=== PATIENT | female | born 1940 | race Caucasian/White ===

== ENCOUNTER 2019-09-08 09:45 | Inpatient (IN) ==
[2019-09-08] MEDS ORDERED: DILTIAZEM 50 MG/10 ML VIAL IV STA (10:09)
[2019-09-08 10:23] LABS: Basophils # 0.1 10*3/uL (0.0-0.2); Basophils % 0.7 % (0.0-0.8); Eosinophils # 0.2 10*3/uL (0.0-0.87); Eosinophils % 2.3 % (0.00-10.9); Hematocrit 38.3 VOL% (35.7-47.0); Hemoglobin 12.8 GM/DL (12.0-16.0); Immature Granulocytes % 0.1 %; Immature Granulocytes Absolute 0.01 #; Lymphocytes # 1.3 10*3/uL (1.4-4.0); Lymphocytes % 17.4 % (21.3-54.2); Mean Corpuscular HGB Conc 33.4 GM/DL (32-36); Mean Corpuscular Volume 92.5 FL (87-102); Neutrophils % 70.5 % (38.7-73.9); Platelet Count 199 T/CUMM (130-400); Red Blood Count 4.14 MC/CUMM (3.8-5.5); Red Cell Distribution Width 13.7 % (9.3-17.3); White Blood Count 7.5 T/CUMM (4-12)
[2019-09-08 10:35] LABS: PT Patient Result 10.7 SECS (9.6-12.2); Partial Thromboplastin Time 26.8 SECS (20.8-36.0)
[2019-09-08 10:58] LABS: Alanine Aminotransferase 45 U/L (13-56); Albumin 3.8 G/DL (3.4-5.0); Alkaline Phosphatase 101 U/L (45-117); Aspartate Amino Transferase 45 U/L (0-37); Blood Urea Nitrogen 15 MG/DL (7-18); Calcium 9.2 MG/DL (8.5-10.1); Estimated Glom Filtration Rate 35 ML/MIN; Free T4 (Free Thyroxine) 1.44 NG/DL (0.76-1.46); Glucose 99 MG/DL (74-106); Osmolality,Calculated 279.4 MOS/KG (273-304); Total Protein 7.4 G/DL (6.4-8.3)
[2019-09-08 10:59] LABS: Troponin I 0.122 NG/ML (0.00-0.045)
[2019-09-08] MEDS ORDERED: ACETAMINOPHEN 500 MG TABLET PO PRN (11:22)
[2019-09-08] MEDS ORDERED: ONDANSETRON 4 MG/2 ML VIAL IV PRN (11:22)
[2019-09-08] MEDS ORDERED: ZALEPLON 5 MG CAPSULE PO PRN (13:14)
[2019-09-08] MEDS: PANTOPRAZOLE 40 MG TABLET PO SCH (14:39)
[2019-09-08] MEDS: ASPIRIN EC 81 MG TABLET PO SCH (16:24)
[2019-09-08] MEDS ORDERED: dilTIAZem Drip 125 MG/125 ML PREMIX IV SCH (16:30)
[2019-09-08] MEDS: APIXABAN 5 MG TABLET PO SCH (20:49)
[2019-09-08 22:16] LABS: Barbiturates Screen,Urine Negative (Negative); Benzodiazepines Screen,Urine Negative (Negative); Cannabinoid Screen,Urine Negative (Negative); Opiate Screen,Urine Positive (Negative); Phencyclidine Screen,Urine Negative (Negative)
[2019-09-08 22:20] LABS: Apearance,Urine CLEAR (Clear); Bilirubin,Urine Negative (Negative); Blood, Urine Negative (Negative); Glucose,Urine (UA) Negative (Negative); Hyaline Casts,Urine 4 /LPF (0-3); Ketones,Urine Negative (Negative); Mucus,Urine Occasional /LPF (Occasional); Nitrite,Urine Negative (Negative); Protein,Urine Negative; RBC,Urine 3 /HPF (0-4); Squamous Epithelial Cell,Urine Occasional /HPF (0-10); Urine Color Yellow (Yellow); Urine Specific Gravity 1.015 (1.001-1.035); Urine Urobilinogen < 2.0 EU/DL (0.2-1.0); WBC,Urine 5 /HPF (0-6)
[2019-09-09 05:30] LABS: Basophils # 0.1 10*3/uL (0.0-0.2); Basophils % 1.1 % (0.0-0.8); Eosinophils # 0.2 10*3/uL (0.0-0.87); Eosinophils % 3.1 % (0.00-10.9); Hematocrit 36.7 VOL% (35.7-47.0); Immature Granulocytes % 0.3 %; Immature Granulocytes Absolute 0.02 #; Lymphocytes # 1.8 10*3/uL (1.4-4.0); Lymphocytes % 27.7 % (21.3-54.2); Mean Corpuscular HGB Conc 32.7 GM/DL (32-36); Mean Corpuscular Volume 93.6 FL (87-102); Monocytes % 8.9 % (1.7-12.7); Neutrophils % 58.9 % (38.7-73.9); Platelet Count 176 T/CUMM (130-400); Red Blood Count 3.92 MC/CUMM (3.8-5.5); Red Cell Distribution Width 13.8 % (9.3-17.3); White Blood Count 6.5 T/CUMM (4-12)
[2019-09-09 05:55] LABS: Calcium 8.9 MG/DL (8.5-10.1); Osmolality,Calculated 292.6 MOS/KG (273-304)
[2019-09-09] MEDS: LEVOTHYROXINE 100 MCG TABLET PO SCH (06:19)
[2019-09-09] MEDS: MONTELUKAST 10 MG TABLET PO SCH (08:45)
[2019-09-09] MEDS: METOPROLOL SUCCINATE XL 50 MG TABLET PO SCH (08:45)
[2019-09-09] MEDS: ASPIRIN EC 81 MG TABLET PO SCH (08:45)
[2019-09-09] MEDS: PANTOPRAZOLE 40 MG TABLET PO SCH (08:45)
[2019-09-09] MEDS: APIXABAN 5 MG TABLET PO SCH ×2 (08:45→22:01)
[2019-09-09] MEDS: CALCIUM CARBONATE CHEW 500 MG TABLET PO SCH (08:46)
[2019-09-09] MEDS ORDERED: CALCIUM CARBONATE CHEW 500 MG TABLET PO SCH (09:00)
[2019-09-09] MEDS ORDERED: DIGOXIN 0.25 MG TABLET PO ONE (12:45)
[2019-09-09] MEDS ORDERED: DIGOXIN 0.125 MG TABLET PO SCH (13:00)
[2019-09-09] MEDS: WARFARIN 5 MG TABLET PO SCH (17:24)
[2019-09-10 04:01] LABS: Basophils # 0.1 10*3/uL (0.0-0.2); Basophils % 0.8 % (0.0-0.8); Eosinophils # 0.4 10*3/uL (0.0-0.87); Eosinophils % 4.3 % (0.00-10.9); Hemoglobin 12.6 GM/DL (12.0-16.0); Immature Granulocytes % 0.2 %; Immature Granulocytes Absolute 0.02 #; Lymphocytes # 1.9 10*3/uL (1.4-4.0); Lymphocytes % 23.1 % (21.3-54.2); Mean Corpuscular HGB Conc 33.2 GM/DL (32-36); Mean Corpuscular Volume 93.8 FL (87-102); Mean Platelet Volume 11.2 FL (9.6-12.0); Monocytes % 8.1 % (1.7-12.7); Neutrophils % 63.5 % (38.7-73.9); Platelet Count 170 T/CUMM (130-400); Red Blood Count 4.05 MC/CUMM (3.8-5.5); Red Cell Distribution Width 13.7 % (9.3-17.3); White Blood Count 8.4 T/CUMM (4-12)
[2019-09-10 04:08] LABS: INR 1.1; PT Patient Result 11.6 SECS (9.6-12.2)
[2019-09-10 04:15] LABS: Osmolality,Calculated 283.3 MOS/KG (273-304)
[2019-09-10] MEDS: LEVOTHYROXINE 100 MCG TABLET PO SCH (06:49)
[2019-09-10] MEDS: METOPROLOL SUCCINATE XL 50 MG TABLET PO SCH (08:37)
[2019-09-10] MEDS: PANTOPRAZOLE 40 MG TABLET PO SCH (08:37)
[2019-09-10] MEDS: MONTELUKAST 10 MG TABLET PO SCH (08:37)
[2019-09-10] MEDS: APIXABAN 5 MG TABLET PO SCH (08:37)
[2019-09-10] MEDS: CALCIUM CARBONATE CHEW 500 MG TABLET PO SCH (08:38)
[2019-09-10] MEDS: DIGOXIN 0.125 MG TABLET PO SCH (13:05)
[2019-09-10] MEDS: DILTIAZEM 30 MG TABLET PO SCH ×2 (16:04→22:20)
[2019-09-10] MEDS ORDERED: DIAZEPAM 5 MG TABLET PO ONE (16:26)
[2019-09-10] MEDS ORDERED: POTASSIUM CHLORIDE RIDER 10 MEQ in PREMIX 1 EACH IV PRN (16:26)
[2019-09-10] MEDS ORDERED: MAGNESIUM SULF RIDER 2 GM in PREMIX 1 EACH IV PRN (16:26)
[2019-09-10] MEDS ORDERED: FUROSEMIDE 40 MG/4 ML VIAL IV ONE (16:26)
[2019-09-10] MEDS ORDERED: diphenhydrAMINE CAP 25 MG CAPSULE PO ONE (16:26)
[2019-09-10] MEDS: RANITIDINE 150 MG TABLET PO SCH ×2 (17:19→22:20)
[2019-09-10] MEDS: diphenhydrAMINE CAP 25 MG CAPSULE PO SCH (17:19)
[2019-09-10] MEDS: WARFARIN 5 MG TABLET PO SCH (17:20)
[2019-09-10] MEDS: predniSONE 20 MG TABLET PO SCH ×2 (17:20→22:20)
[2019-09-11] MEDS: diphenhydrAMINE CAP 25 MG CAPSULE PO SCH ×4 (00:37→17:20)
[2019-09-11] MEDS: predniSONE 20 MG TABLET PO SCH ×4 (03:55→23:46)
[2019-09-11 04:47] LABS: Basophils % 0.1 % (0.0-0.8); Eosinophils % 0.1 % (0.00-10.9); Hematocrit 41.4 VOL% (35.7-47.0); Hemoglobin 13.9 GM/DL (12.0-16.0); Immature Granulocytes % 0.3 %; Immature Granulocytes Absolute 0.02 #; Lymphocytes # 0.8 10*3/uL (1.4-4.0); Lymphocytes % 10.9 % (21.3-54.2); Mean Corpuscular HGB Conc 33.6 GM/DL (32-36); Mean Corpuscular Volume 91.8 FL (87-102); Mean Platelet Volume 11.9 FL (9.6-12.0); Monocytes % 1.2 % (1.7-12.7); Neutrophils % 87.4 % (38.7-73.9); Platelet Count 215 T/CUMM (130-400); Red Blood Count 4.51 MC/CUMM (3.8-5.5); Red Cell Distribution Width 13.5 % (9.3-17.3); White Blood Count 6.9 T/CUMM (4-12)
[2019-09-11 04:54] LABS: INR 1.2; PT Patient Result 12.5 SECS (9.6-12.2)
[2019-09-11 05:08] LABS: Calcium 9.4 MG/DL (8.5-10.1); Osmolality,Calculated 287.4 MOS/KG (273-304)
[2019-09-11] MEDS ORDERED: diphenhydrAMINE CAP 25 MG CAPSULE PO ONE (06:00)
[2019-09-11] MEDS ORDERED: DIAZEPAM 5 MG TABLET PO ONE (06:00)
[2019-09-11] MEDS ORDERED: MAGNESIUM SULF RIDER 2 GM in PREMIX 1 EACH IV PRN (08:42)
[2019-09-11] MEDS ORDERED: POTASSIUM CHLORIDE RIDER 10 MEQ in PREMIX 1 EACH IV PRN (08:42)
[2019-09-11] MEDS ORDERED: FUROSEMIDE 40 MG/4 ML VIAL IV ONE (08:45)
[2019-09-11] MEDS: SOTALOL 80 MG TABLET PO SCH ×2 (09:21→20:46)
[2019-09-11] MEDS: PANTOPRAZOLE 40 MG TABLET PO SCH (09:21)
[2019-09-11] MEDS: DILTIAZEM 30 MG TABLET PO SCH ×3 (09:21→20:45)
[2019-09-11] MEDS: LEVOTHYROXINE 100 MCG TABLET PO SCH (09:21)
[2019-09-11] MEDS: ROSUVASTATIN 20 MG TABLET PO SCH (09:22)
[2019-09-11] MEDS: RANITIDINE 150 MG TABLET PO SCH ×2 (09:22→20:44)
[2019-09-11] MEDS: CALCIUM CARBONATE CHEW 500 MG TABLET PO SCH (09:22)
[2019-09-11] MEDS: MONTELUKAST 10 MG TABLET PO SCH (09:22)
[2019-09-11] MEDS: DIGOXIN 0.125 MG TABLET PO SCH (12:50)
[2019-09-11] MEDS: WARFARIN 5 MG TABLET PO SCH (17:20)
[2019-09-12] MEDS: diphenhydrAMINE CAP 25 MG CAPSULE PO SCH ×5 (00:05→23:13)
[2019-09-12 04:42] LABS: Basophils % 0.1 % (0.0-0.8); Hematocrit 39.1 VOL% (35.7-47.0); Hemoglobin 13.2 GM/DL (12.0-16.0); Immature Granulocytes % 0.4 %; Immature Granulocytes Absolute 0.08 #; Lymphocytes # 0.8 10*3/uL (1.4-4.0); Lymphocytes % 4.4 % (21.3-54.2); Mean Corpuscular HGB Conc 33.8 GM/DL (32-36); Mean Corpuscular Volume 91.1 FL (87-102); Monocytes % 3.3 % (1.7-12.7); Neutrophils % 91.8 % (38.7-73.9); Platelet Count 257 T/CUMM (130-400); Red Blood Count 4.29 MC/CUMM (3.8-5.5); Red Cell Distribution Width 13.5 % (9.3-17.3)
[2019-09-12 04:48] LABS: INR 2.3
[2019-09-12 04:51] LABS: PT Patient Result 24.5 SECS (9.6-12.2)
[2019-09-12 05:12] LABS: Band Neutrophils 1 % (0-10); Calcium 8.9 MG/DL (8.5-10.1); Lymphocytes 5 % (20-55); Osmolality,Calculated 294.4 MOS/KG (273-304); Platelet Estimate Adequate; Segmented Neutrophils 91 % (50-85); Total Cells Counted 100
[2019-09-12 05:13] LABS: Hypochromasia Slight; Ovalocytes Slight
[2019-09-12] MEDS: predniSONE 20 MG TABLET PO SCH ×4 (05:25→23:14)
[2019-09-12] MEDS ORDERED: SODIUM CHLORIDE 0.9% 1,000 ML IV SCH ×2 (07:00→09:30)
[2019-09-12] MEDS ORDERED: DIAZEPAM 5 MG TABLET PO ONE (08:42)
[2019-09-12] MEDS ORDERED: diphenhydrAMINE CAP 25 MG CAPSULE PO ONE (08:42)
[2019-09-12] MEDS: LEVOTHYROXINE 100 MCG TABLET PO SCH (10:35)
[2019-09-12] MEDS: ROSUVASTATIN 20 MG TABLET PO SCH (10:35)
[2019-09-12] MEDS: DILTIAZEM 30 MG TABLET PO SCH ×3 (10:35→20:57)
[2019-09-12] MEDS: CALCIUM CARBONATE CHEW 500 MG TABLET PO SCH (10:35)
[2019-09-12] MEDS: SOTALOL 80 MG TABLET PO SCH ×2 (10:36→20:56)
[2019-09-12] MEDS: MONTELUKAST 10 MG TABLET PO SCH (10:36)
[2019-09-12] MEDS: PANTOPRAZOLE 40 MG TABLET PO SCH (10:36)
[2019-09-12] MEDS: RANITIDINE 150 MG TABLET PO SCH ×2 (10:36→20:57)
[2019-09-12] MEDS: DIGOXIN 0.125 MG TABLET PO SCH (13:44)
[2019-09-12] MEDS: WARFARIN 5 MG TABLET PO SCH (17:55)
[2019-09-13] MEDS: predniSONE 20 MG TABLET PO SCH ×3 (05:27→16:21)
[2019-09-13 06:24] LABS: INR 4.5
[2019-09-13 06:26] LABS: PT Patient Result 48.6 SECS (9.6-12.2)
[2019-09-13 06:28] LABS: Calcium 8.1 MG/DL (8.5-10.1); Osmolality,Calculated 286.8 MOS/KG (273-304)
[2019-09-13] MEDS: diphenhydrAMINE CAP 25 MG CAPSULE PO SCH ×3 (06:47→17:45)
[2019-09-13] MEDS: LEVOTHYROXINE 100 MCG TABLET PO SCH (06:48)
[2019-09-13] MEDS ORDERED: MEPERIDINE 25 MG/1 ML VIAL ONE (09:57)
[2019-09-13] MEDS ORDERED: MIDAZOLAM 10 MG/2 ML VIAL ONE (09:57)
[2019-09-13] MEDS: RANITIDINE 150 MG TABLET PO SCH ×2 (12:21→21:25)
[2019-09-13] MEDS: MONTELUKAST 10 MG TABLET PO SCH (12:21)
[2019-09-13] MEDS: CALCIUM CARBONATE CHEW 500 MG TABLET PO SCH (12:21)
[2019-09-13] MEDS: SOTALOL 80 MG TABLET PO SCH ×2 (12:31→21:25)
[2019-09-13] MEDS: PANTOPRAZOLE 40 MG TABLET PO SCH (12:36)
[2019-09-13] MEDS: DILTIAZEM 30 MG TABLET PO SCH ×3 (12:36→21:25)
[2019-09-13] MEDS: ROSUVASTATIN 20 MG TABLET PO SCH (12:36)
[2019-09-13] MEDS: DIGOXIN 0.125 MG TABLET PO SCH (13:13)
[2019-09-13] MEDS: WARFARIN 5 MG TABLET PO SCH (17:47)
[2019-09-14] MEDS: predniSONE 20 MG TABLET PO SCH ×2 (00:15→06:06)
[2019-09-14] MEDS: diphenhydrAMINE CAP 25 MG CAPSULE PO SCH ×2 (00:15→06:06)
[2019-09-14] MEDS: LEVOTHYROXINE 100 MCG TABLET PO SCH (06:06)
[2019-09-14 08:04] VITALS: BP 124/57
[2019-09-14] MEDS: PANTOPRAZOLE 40 MG TABLET PO SCH (08:29)
[2019-09-14] MEDS: RANITIDINE 150 MG TABLET PO SCH (08:29)
[2019-09-14] MEDS: CALCIUM CARBONATE CHEW 500 MG TABLET PO SCH (08:29)
[2019-09-14] MEDS: MONTELUKAST 10 MG TABLET PO SCH (08:29)
[2019-09-14] MEDS: SOTALOL 80 MG TABLET PO SCH (08:29)
[2019-09-14] MEDS: DILTIAZEM 30 MG TABLET PO SCH (08:29)
[2019-09-14] MEDS: ROSUVASTATIN 20 MG TABLET PO SCH (08:29)
== END 2019-09-14 10:33 | disposition home or self-care (01) | DRG 309 ==
LOC: N.ED 09:45 → N.EDINP 09:45 → N.TELES 13:03
PROVIDERS: ADMIT Family Medicine; ATTEND Family Medicine

== ENCOUNTER 2019-11-01 08:42 | Inpatient (IN) ==
[2019-11-01] MEDS ORDERED: GLUCAGON 1 MG VIAL IM PRN (08:49)
[2019-11-01] MEDS ORDERED: DEXTROSE 10% 250 ML BAG IV PRN (08:49)
[2019-11-01 09:14] LABS: Basophils # 0.1 10*3/uL (0.0-0.2); Basophils % 1.1 % (0.0-0.8); Eosinophils # 0.3 10*3/uL (0.0-0.87); Eosinophils % 3.6 % (0.00-10.9); Hematocrit 37.9 VOL% (35.7-47.0); Hemoglobin 12.9 GM/DL (12.0-16.0); Immature Granulocytes % 0.3 %; Immature Granulocytes Absolute 0.02 #; Lymphocytes # 1.4 10*3/uL (1.4-4.0); Lymphocytes % 18.8 % (21.3-54.2); Mean Corpuscular Volume 92.4 FL (87-102); Monocytes % 7.6 % (1.7-12.7); Neutrophils % 68.6 % (38.7-73.9); Platelet Count 200 T/CUMM (130-400); Red Cell Distribution Width 13.7 % (9.3-17.3); White Blood Count 7.5 T/CUMM (4-12)
[2019-11-01 09:35] LABS: Albumin 3.9 G/DL (3.4-5.0); Bilirubin,Total 1.5 MG/DL (0.2-1.0); Calcium 9.2 MG/DL (8.5-10.1); Osmolality,Calculated 275.7 MOS/KG (273-304); Total Protein 7.3 G/DL (6.4-8.3)
[2019-11-01 11:25] LABS: ABG Base Excess 1.2 MMOL/L (-2.5-2.5); ABG HCO3 25.4 MMOL/L (20-26); ABG Oxygen Saturation 98.1 % (95-100); ABG PCO2 35.3 MM HG (35-48); ABG PH 7.452 (7.35-7.45); ABG PO2 99.1 MM HG (80-95); ABG TCO2 21.6 MMOL/L (23-27)
[2019-11-01] MEDS ORDERED: traMADol 50 MG TABLET PO PRN (11:55)
[2019-11-01] MEDS ORDERED: ZALEPLON 5 MG CAPSULE PO PRN (11:55)
[2019-11-01 12:33] LABS: PT Patient Result 10.7 SECS (9.6-12.2)
[2019-11-01] MEDS ORDERED: ALBUTEROL 2.5 MG/3 ML NEB RESP TX PRN (15:00)
[2019-11-01] MEDS ORDERED: PANTOPRAZOLE 40 MG TABLET PO SCH (16:30)
[2019-11-01] MEDS: CHLORHEXIDINE 4% SOLN 118 ML BOTTLE TOP SCH ×3 (18:46→22:17)
[2019-11-01] MEDS: SODIUM CHLORIDE 0.9% 1,000 ML IV SCH (18:47)
[2019-11-01] MEDS ORDERED: FOLIC ACID 0.4 MG TABLET PO SCH (21:00)
[2019-11-01] MEDS ORDERED: MAGNESIUM OXIDE 400 MG TABLET PO SCH (21:00)
[2019-11-01] MEDS ORDERED: ROSUVASTATIN 20 MG TABLET PO SCH (21:00)
[2019-11-01] MEDS: CHLORHEXIDINE 0.12% ORAL RINSE 60 ML BOTTLE SWISH/SPIT SCH ×2 (21:25→22:14)
[2019-11-01] MEDS: FLUTICASONE/SALMETEROL 250-50 DISKUS 14 DOSE INH SCH (22:14)
[2019-11-02] MEDS ORDERED: VANCOMYCIN 1,000 MG VIAL ONE (04:24)
[2019-11-02] MEDS ORDERED: DIAZEPAM 5 MG TABLET PO ONE (05:00)
[2019-11-02] MEDS ORDERED: FAMOTIDINE 20 MG TABLET PO ONE (05:00)
[2019-11-02] MEDS ORDERED: AMINOCAPROIC ACID 5,000 MG/20 ML VIAL ONE (05:42)
[2019-11-02] MEDS ORDERED: HEPARIN/NACL 0.9% 2 UNITS/ML 500 ML IV ONE (05:42)
[2019-11-02] MEDS ORDERED: SUFentanil 250 MCG/5 ML AMP ONE (05:42)
[2019-11-02] MEDS ORDERED: MIDAZOLAM 10 MG/2 ML VIAL ONE (05:42)
[2019-11-02] MEDS ORDERED: CEFUROXIME INJ 1,500 MG in SYRINGE 1 EACH IV ONE (07:00)
[2019-11-02] MEDS ORDERED: PHENYLEPHRINE DRIP 40 MG/250 ML PREMIX IV ONE (07:26)
[2019-11-02] MEDS ORDERED: POTASSIUM CHLORIDE RIDER 100 ML IV ONE (07:27)
[2019-11-02] MEDS ORDERED: SODIUM BICARBONATE 50 MEQ/50 ML VIAL IV ONE ×2 (07:27→09:55)
[2019-11-02] MEDS ORDERED: CALCIUM CHLORIDE 1,000 MG/10 ML SYRINGE IV ONE (07:27)
[2019-11-02] MEDS ORDERED: ALBUMIN 5% 12.5 GM/250 ML VIAL IV ONE (07:28)
[2019-11-02 07:44] LABS: ABG Base Excess -0.3 MMOL/L (-2.5-2.5); ABG HCO3 24.2 MMOL/L (20-26); ABG PCO2 33.7 MM HG (35-48); ABG PH 7.446 (7.35-7.45); Glucose Heart Surgery 96 MG/DL (74-106); Hematocrit Heart Surgery 31.1 PERCENT (37-47); Ionized Calcium Arterial 1.13 MMOL/L (1.21-1.46); PCO2 Patient Temp Arterial 33.7 MMHG; PH Patient Temp Arterial 7.446; Patient Temperature 37 CELCIUS; Potassium Heart/CVR 3.3 MMOL/L (3.5-5.1); Sodium Heart/CVR 139 MMOL/L (135-145)
[2019-11-02 08:37] LABS: Hematocrit Heart Surgery 22.2 PERCENT (37-47); Hemoglobin Heart Surgery 7.1 G/DL (12.0-16.0); PCO2 Patient Temp Venous 27.2 MM HG; PH Patient Temp Venous 7.568; PO2 Patient Temp Venous 38.2 MM HG; Potassium Heart/CVR 4.4 MMOL/L (3.5-5.1); VBG Oxygen Saturation 87.7 %; VBG PCO2 31.4 MMHG (41-51); VBG PH 7.522; VBG PO2 46.9 MMHG (17-40)
[2019-11-02] MEDS ORDERED: MULTIVITAMIN (CENTRUM) TABLET PO SCH (09:00)
[2019-11-02] MEDS ORDERED: MONTELUKAST 10 MG TABLET PO SCH (09:00)
[2019-11-02 09:13] LABS: Hematocrit Heart Surgery 23.8 PERCENT (37-47); Hemoglobin Heart Surgery 7.6 G/DL (12.0-16.0); PCO2 Patient Temp Venous 31.1 MM HG; PH Patient Temp Venous 7.506; PO2 Patient Temp Venous 42.2 MM HG; VBG HCO3 26.1 MEQ/L (24-28); VBG Oxygen Saturation 88.9 %; VBG PH 7.461; VBG PO2 51.7 MMHG (17-40)
[2019-11-02] MEDS ORDERED: PROTAMINE SULFATE 250 MG/25 ML VIAL IV ONE (09:55)
[2019-11-02] MEDS ORDERED: MAGNESIUM SULFATE 5 GM/10 ML VIAL IV ONE (09:55)
[2019-11-02] MEDS ORDERED: MANNITOL 100 GM/500 ML BAG IV ONE (09:55)
[2019-11-02] MEDS ORDERED: LIDOCAINE 2% 5 ML VIAL ONE ×2 (09:55→10:54)
[2019-11-02] MEDS ORDERED: DEXTROSE 5% KCL 20 MEQ 20 MEQ/1,000 ML BAG IV ONE (09:55)
[2019-11-02] MEDS ORDERED: ALBUMIN 25% 25 GM/100 ML VIAL IV ONE (09:55)
[2019-11-02] MEDS ORDERED: FUROSEMIDE 20 MG/2 ML VIAL ONE (09:56)
[2019-11-02] MEDS ORDERED: HEPARIN 10,000 UNIT/10 ML VIAL ONE (09:56)
[2019-11-02] MEDS ORDERED: methylPREDNISolone SOD SUC 1,000 MG/8 ML VIAL ONE (09:56)
[2019-11-02] MEDS ORDERED: POTASSIUM CHLORIDE 20 MEQ/10 ML VIAL ONE (09:56)
[2019-11-02] MEDS: FLUTICASONE/SALMETEROL 250-50 DISKUS 14 DOSE INH SCH (10:02)
[2019-11-02] MEDS: SODIUM CHLORIDE 0.9% 1,000 ML IV SCH (10:02)
[2019-11-02] MEDS: CHLORHEXIDINE 0.12% ORAL RINSE 60 ML BOTTLE SWISH/SPIT SCH ×2 (10:02→21:28)
[2019-11-02 10:08] LABS: ABG Base Excess 0.8 MMOL/L (-2.5-2.5); ABG HCO3 25.1 MMOL/L (20-26); ABG PCO2 36.1 MM HG (35-48); ABG PH 7.442 (7.35-7.45); ABG TCO2 22.7 MMOL/L (23-27); Glucose Heart Surgery 213 MG/DL (74-106); Hematocrit Heart Surgery 27.4 PERCENT (37-47); Hemoglobin Heart Surgery 8.8 G/DL (12.0-16.0); PCO2 Patient Temp Arterial 36.1 MMHG; PH Patient Temp Arterial 7.442; Patient Temperature 37 CELCIUS; Potassium Heart/CVR 3.4 MMOL/L (3.5-5.1); Sodium Heart/CVR 134 MMOL/L (135-145)
[2019-11-02] MEDS ORDERED: INSULIN REGULAR 100 UNIT/ML IV PRN (10:45)
[2019-11-02] MEDS ORDERED: INSULIN REGULAR 100 UNIT/ML IV ONE (10:45)
[2019-11-02] MEDS ORDERED: DEXTROSE 10% 250 ML BAG IV PRN ×2 (10:45)
[2019-11-02] MEDS ORDERED: VECURONIUM 10 MG VIAL IV PRN ×2 (10:45)
[2019-11-02] MEDS ORDERED: MAGNESIUM SULF RIDER 4 GM in PREMIX 1 EACH IV PRN (10:45)
[2019-11-02] MEDS ORDERED: ONDANSETRON 4 MG/2 ML VIAL IV PRN (10:45)
[2019-11-02] MEDS ORDERED: ACETAMINOPHEN 650 MG SUPP RECTAL PRN (10:45)
[2019-11-02] MEDS ORDERED: CHLORHEXIDINE 4% SOLN 118 ML BOTTLE TOP PRN (10:45)
[2019-11-02] MEDS ORDERED: MIDAZOLAM 10 MG/2 ML VIAL IV PRN (10:45)
[2019-11-02] MEDS ORDERED: NITROPRUSSIDE 100 MG in DEXTROSE 5% 250 ML IV PRN (10:45)
[2019-11-02] MEDS ORDERED: MORPHINE 10 MG/1 ML VIAL IV PRN (10:45)
[2019-11-02] MEDS ORDERED: MAGNESIUM SULF RIDER 2 GM in PREMIX 1 EACH IV PRN (10:45)
[2019-11-02] MEDS ORDERED: MIDAZOLAM 2 MG/2 ML VIAL IV PRN (10:45)
[2019-11-02] MEDS ORDERED: PHENYLEPHRINE DRIP 40 MG/250 ML PREMIX IV PRN (10:45)
[2019-11-02] MEDS ORDERED: CALCIUM CHLORIDE 1,000 MG/10 ML SYRINGE IV PRN (10:45)
[2019-11-02] MEDS ORDERED: ePHEDrine 50 MG/ML AMP ONE (10:54)
[2019-11-02] MEDS ORDERED: VECURONIUM 10 MG VIAL IV ONE (10:54)
[2019-11-02] MEDS ORDERED: AMIODARONE 150 MG/3 ML VIAL ONE (10:54)
[2019-11-02] MEDS ORDERED: MIDAZOLAM 2 MG/2 ML VIAL ONE (10:54)
[2019-11-02] MEDS ORDERED: SEVOFLURANE 1 UNIT/15 MINUTE INH ONE (10:54)
[2019-11-02] MEDS ORDERED: LACTATED RINGERS 1,000 ML IV ONE (10:55)
[2019-11-02] MEDS ORDERED: ETOMIDATE 40 MG/20 ML VIAL IV ONE (10:55)
[2019-11-02] MEDS ORDERED: SODIUM CHLORIDE 0.9% 1,000 ML IV ONE (10:55)
[2019-11-02] MEDS ORDERED: SODIUM CHLORIDE 0.9% 250 ML IV ONE (10:55)
[2019-11-02] MEDS ORDERED: GLYCOPYRROLATE 0.4 MG/2 ML VIAL ONE (10:55)
[2019-11-02 10:56] LABS: ABG Base Excess -0.4 MMOL/L (-2.5-2.5); ABG HCO3 24.1 MMOL/L (20-26); ABG PCO2 33.7 MM HG (35-48); ABG PH 7.445 (7.35-7.45); Glucose Heart Surgery 191 MG/DL (74-106); Hematocrit Heart Surgery 30.8 PERCENT (37-47); Potassium Heart/CVR 3.5 MMOL/L (3.5-5.1)
[2019-11-02] MEDS ORDERED: NITROGLYCERIN DRIP 50 MG/250 ML BOTTLE IV ONE (10:56)
[2019-11-02] MEDS ORDERED: CALCIUM CHLORIDE 1,000 MG/10 ML VIAL IV ONE (10:56)
[2019-11-02] MEDS ORDERED: INSULIN REGULAR DRIP 100 ML IV SCH (11:00)
[2019-11-02] MEDS: SODIUM CHLORIDE 0.45% 1,000 ML IV SCH ×2 (11:00)
[2019-11-02 11:04] LABS: Basophils # 0.1 10*3/uL (0.0-0.2); Basophils % 0.7 % (0.0-0.8); Eosinophils # 0.2 10*3/uL (0.0-0.87); Eosinophils % 1.8 % (0.00-10.9); Hematocrit 29.6 VOL% (35.7-47.0); Immature Granulocytes % 0.7 %; Immature Granulocytes Absolute 0.07 #; Lymphocytes # 0.7 10*3/uL (1.4-4.0); Lymphocytes % 7.2 % (21.3-54.2); Mean Corpuscular HGB Conc 33.1 GM/DL (32-36); Mean Corpuscular Volume 92.8 FL (87-102); Mean Platelet Volume 11.3 FL (9.6-12.0); Monocytes % 4.7 % (1.7-12.7); Neutrophils % 84.9 % (38.7-73.9); Red Cell Distribution Width 13.6 % (9.3-17.3)
[2019-11-02 11:05] LABS: Hemoglobin 9.8 GM/DL (12.0-16.0); Platelet Count 132 T/CUMM (130-400); Red Blood Count 3.19 MC/CUMM (3.8-5.5)
[2019-11-02] MEDS ORDERED: NITROGLYCERIN DRIP 50 MG/250 ML BOTTLE IV PRN (11:06)
[2019-11-02 11:18] LABS: INR 1.2; PT Patient Result 12.5 SECS (9.6-12.2); Partial Thromboplastin Time 27.5 SECS (20.8-36.0)
[2019-11-02] MEDS ORDERED: PROTAMINE SULFATE 50 MG/5 ML VIAL IV ONE (11:24)
[2019-11-02 11:37] LABS: Albumin 3.4 G/DL (3.4-5.0); Calcium 9.4 MG/DL (8.5-10.1); Total Protein 5.6 G/DL (6.4-8.3)
[2019-11-02 11:38] LABS: CKMB % 12.1 %
[2019-11-02 11:39] LABS: Troponin I 9.57 NG/ML (0.00-0.045)
[2019-11-02 12:44] LABS: ABG Base Excess 0.9 MMOL/L (-2.5-2.5); ABG HCO3 25.3 MMOL/L (20-26); ABG Oxygen Saturation 99.8 % (95-100); ABG PCO2 34.1 MM HG (35-48); ABG PH 7.461 (7.35-7.45); ABG TCO2 21.7 MMOL/L (23-27); Glucose Heart Surgery 184 MG/DL (74-106); Hematocrit Heart Surgery 33.7 PERCENT (37-47); Hemoglobin Heart Surgery 10.9 G/DL (12.0-16.0); Potassium Heart/CVR 2.8 MMOL/L (3.5-5.1)
[2019-11-02] MEDS: POTASSIUM CHLORIDE RIDER 20 MEQ in PREMIX 1 EACH IV PRN ×5 (12:48→20:11)
[2019-11-02] MEDS: LACTATED RINGERS 250 ML IV PRN ×8 (12:56→17:48)
[2019-11-02] MEDS: POTASSIUM CHLORIDE RIDER 10 MEQ in PREMIX 1 EACH IV PRN ×2 (13:52→20:44)
[2019-11-02] MEDS: ALBUMIN 5% 12.5 GM in PREMIX 1 EACH IV PRN ×3 (14:14→22:43)
[2019-11-02 16:14] LABS: ABG Base Excess 1.3 MMOL/L (-2.5-2.5); ABG HCO3 25.6 MMOL/L (20-26); ABG Oxygen Saturation 99.7 % (95-100); ABG PH 7.468 (7.35-7.45); ABG TCO2 22.3 MMOL/L (23-27); Glucose Heart Surgery 158 MG/DL (74-106); Hematocrit Heart Surgery 30.8 PERCENT (37-47); Potassium Heart/CVR 3.2 MMOL/L (3.5-5.1)
[2019-11-02] MEDS: CEFUROXIME INJ 1,500 MG in SYRINGE 1 EACH IV SCH (18:17)
[2019-11-02 19:44] LABS: ABG Base Excess 0.8 MMOL/L (-2.5-2.5); ABG HCO3 25.1 MMOL/L (20-26); ABG Oxygen Saturation 98.9 % (95-100); ABG PCO2 38.4 MM HG (35-48); ABG PH 7.423 (7.35-7.45); ABG TCO2 22.9 MMOL/L (23-27); Glucose Heart Surgery 156 MG/DL (74-106); Hematocrit Heart Surgery 29.2 PERCENT (37-47); Hemoglobin Heart Surgery 9.4 G/DL (12.0-16.0); Potassium Heart/CVR 3.7 MMOL/L (3.5-5.1)
[2019-11-02 20:02] LABS: CKMB % 9.7 %
[2019-11-02 20:04] LABS: Troponin I 12.7 NG/ML (0.00-0.045)
[2019-11-02] MEDS: SOTALOL 80 MG TABLET PO SCH (20:21)
[2019-11-02] MEDS: KETOROLAC 30 MG/1 ML VIAL IV SCH (20:21)
[2019-11-02] MEDS: MORPHINE 4 MG/1 ML VIAL IV PRN ×2 (20:57→23:21)
[2019-11-02 21:18] LABS: ABG HCO3 24.5 MMOL/L (20-26); ABG PCO2 36.7 MM HG (35-48); ABG PH 7.426 (7.35-7.45); Glucose Heart Surgery 162 MG/DL (74-106); Hematocrit Heart Surgery 30.2 PERCENT (37-47); Hemoglobin Heart Surgery 9.8 G/DL (12.0-16.0); Potassium Heart/CVR 4.8 MMOL/L (3.5-5.1)
[2019-11-02 22:16] LABS: ABG Base Excess -0.6 MMOL/L (-2.5-2.5); ABG HCO3 23.9 MMOL/L (20-26); ABG Oxygen Saturation 98.9 % (95-100); ABG PCO2 36.7 MM HG (35-48); ABG PH 7.416 (7.35-7.45); ABG TCO2 21.3 MMOL/L (23-27); Glucose Heart Surgery 162 MG/DL (74-106); Hematocrit Heart Surgery 32.4 PERCENT (37-47); Hemoglobin Heart Surgery 10.5 G/DL (12.0-16.0); Potassium Heart/CVR 4.4 MMOL/L (3.5-5.1)
[2019-11-02 23:04] LABS: ABG HCO3 24.5 MMOL/L (20-26); ABG Oxygen Saturation 98.6 % (95-100); ABG PCO2 37.8 MM HG (35-48); ABG PH 7.416 (7.35-7.45); Glucose Heart Surgery 152 MG/DL (74-106); Hematocrit Heart Surgery 32.2 PERCENT (37-47); Hemoglobin Heart Surgery 10.4 G/DL (12.0-16.0); Potassium Heart/CVR 4.3 MMOL/L (3.5-5.1)
[2019-11-02] MEDS ORDERED: FUROSEMIDE 40 MG/4 ML VIAL IV ONE (23:05)
[2019-11-02] MEDS ORDERED: FUROSEMIDE 40 MG/4 ML VIAL ONE (23:06)
[2019-11-03 00:35] LABS: ABG Base Excess -0.1 MMOL/L (-2.5-2.5); ABG HCO3 24.3 MMOL/L (20-26); ABG Oxygen Saturation 98.3 % (95-100); ABG PCO2 34.6 MM HG (35-48); ABG PH 7.441 (7.35-7.45); ABG PO2 97.9 MM HG (80-95); ABG TCO2 21.3 MMOL/L (23-27); Glucose Heart Surgery 132 MG/DL (74-106); Hematocrit Heart Surgery 31.9 PERCENT (37-47); Hemoglobin Heart Surgery 10.3 G/DL (12.0-16.0)
[2019-11-03] MEDS: KETOROLAC 30 MG/1 ML VIAL IV SCH ×4 (01:42→21:47)
[2019-11-03 01:43] LABS: ABG Base Excess -0.2 MMOL/L (-2.5-2.5); ABG HCO3 24.2 MMOL/L (20-26); ABG Oxygen Saturation 97.5 % (95-100); ABG PCO2 39.9 MM HG (35-48); ABG PH 7.396 (7.35-7.45); ABG PO2 91.1 MM HG (80-95); ABG TCO2 22.2 MMOL/L (23-27); Glucose Heart Surgery 132 MG/DL (74-106); Hemoglobin Heart Surgery 10.4 G/DL (12.0-16.0); Potassium Heart/CVR 3.7 MMOL/L (3.5-5.1)
[2019-11-03] MEDS: POTASSIUM CHLORIDE RIDER 20 MEQ in PREMIX 1 EACH IV PRN (01:56)
[2019-11-03] MEDS ORDERED: HALOPERIDOL 5 MG/ML AMP IV ONE (02:10)
[2019-11-03] MEDS: POTASSIUM CHLORIDE RIDER 10 MEQ in PREMIX 1 EACH IV PRN (02:26)
[2019-11-03] MEDS ORDERED: CLORAZEPATE 3.75 MG TABLET PO ONE (03:23)
[2019-11-03 04:02] LABS: ABG Base Excess -0.9 MMOL/L (-2.5-2.5); ABG HCO3 23.6 MMOL/L (20-26); ABG Oxygen Saturation 97.6 % (95-100); ABG PCO2 38.6 MM HG (35-48); ABG PH 7.405 (7.35-7.45); ABG PO2 113.4 MM HG (80-95); ABG TCO2 24.8 MMOL/L (23-27); Glucose Heart Surgery 116 MG/DL (74-106); Hemoglobin Heart Surgery 10.4 G/DL (12.0-16.0); Potassium Heart/CVR 4.3 MMOL/L (3.5-5.1)
[2019-11-03 04:23] LABS: Basophils % 0.1 % (0.0-0.8); Hematocrit 29.8 VOL% (35.7-47.0); Hemoglobin 9.9 GM/DL (12.0-16.0); Immature Granulocytes % 0.6 %; Lymphocytes # 0.5 10*3/uL (1.4-4.0); Lymphocytes % 2.9 % (21.3-54.2); Mean Corpuscular HGB Conc 33.2 GM/DL (32-36); Mean Corpuscular Volume 92.5 FL (87-102); Mean Platelet Volume 12.2 FL (9.6-12.0); Monocytes % 5.4 % (1.7-12.7); Platelet Count 101 T/CUMM (130-400); Red Blood Count 3.22 MC/CUMM (3.8-5.5); Red Cell Distribution Width 13.7 % (9.3-17.3); White Blood Count 16.8 T/CUMM (4-12)
[2019-11-03 04:26] LABS: Albumin 3.9 G/DL (3.4-5.0); Bilirubin,Direct 0.21 MG/DL (0.0-0.20); Bilirubin,Total 2.2 MG/DL (0.2-1.0); CKMB % 8.1 %; Osmolality,Calculated 277.7 MOS/KG (273-304); Total Protein 6.2 G/DL (6.4-8.3)
[2019-11-03 04:31] LABS: Troponin I 6.59 NG/ML (0.00-0.045)
[2019-11-03 04:42] LABS: Hypochromasia 1+; Lymphocytes 2 % (20-55); Platelet Estimate Decreased; Segmented Neutrophils 92 % (50-85); Total Cells Counted 100
[2019-11-03] MEDS: CEFUROXIME INJ 1,500 MG in SYRINGE 1 EACH IV SCH ×2 (06:20→18:15)
[2019-11-03] MEDS: CHLORHEXIDINE 0.12% ORAL RINSE 60 ML BOTTLE SWISH/SPIT SCH ×2 (08:50→21:43)
[2019-11-03] MEDS: SOTALOL 80 MG TABLET PO SCH ×2 (08:50→21:44)
[2019-11-03] MEDS ORDERED: traMADol 50 MG TABLET PO PRN (09:17)
[2019-11-03] MEDS: CALCIUM (CARBONATE) 600 MG TABLET PO SCH (09:26)
[2019-11-03] MEDS: LEVOTHYROXINE 100 MCG TABLET PO SCH (09:26)
[2019-11-03] MEDS: MONTELUKAST 10 MG TABLET PO SCH (09:58)
[2019-11-03] MEDS: MULTIVITAMIN (CENTRUM) TABLET PO SCH (09:58)
[2019-11-03] MEDS: FLUTICASONE/SALMETEROL 250-50 DISKUS 14 DOSE INH SCH ×2 (09:58→21:40)
[2019-11-03 11:27] LABS: CKMB % 7.5 %
[2019-11-03 11:28] LABS: Troponin I 5.36 NG/ML (0.00-0.045)
[2019-11-03] MEDS: SODIUM CHLORIDE 0.45% 1,000 ML IV SCH ×2 (12:29)
[2019-11-03] MEDS ORDERED: FUROSEMIDE 40 MG/4 ML VIAL IV ONE ×2 (16:01→20:00)
[2019-11-03] MEDS: INSULIN REGULAR 100 UNIT/ML SUBCUT SCH ×2 (16:07→21:23)
[2019-11-03] MEDS ORDERED: FUROSEMIDE 40 MG/4 ML VIAL IV PRN (16:07)
[2019-11-03] MEDS ORDERED: PANTOPRAZOLE 40 MG TABLET PO SCH (16:30)
[2019-11-03] MEDS ORDERED: MAGNESIUM OXIDE 400 MG TABLET PO SCH (21:00)
[2019-11-03] MEDS ORDERED: ZALEPLON 5 MG CAPSULE PO PRN (21:00)
[2019-11-03] MEDS: FOLIC ACID 0.4 MG TABLET PO SCH (21:43)
[2019-11-03] MEDS: ROSUVASTATIN 20 MG TABLET PO SCH (21:44)
[2019-11-03] MEDS: CYANOCOBALAMIN 500 MCG TABLET PO SCH (21:47)
[2019-11-04] MEDS: INSULIN REGULAR 100 UNIT/ML SUBCUT SCH ×6 (01:00→22:27)
[2019-11-04] MEDS: KETOROLAC 30 MG/1 ML VIAL IV SCH ×2 (03:47→08:09)
[2019-11-04 06:16] LABS: Basophils % 0.1 % (0.0-0.8); Hematocrit 28.4 VOL% (35.7-47.0); Hemoglobin 9.7 GM/DL (12.0-16.0); Immature Granulocytes % 0.7 %; Lymphocytes # 0.6 10*3/uL (1.4-4.0); Lymphocytes % 4.1 % (21.3-54.2); Mean Corpuscular HGB Conc 34.2 GM/DL (32-36); Mean Corpuscular Volume 91.6 FL (87-102); Mean Platelet Volume 12.3 FL (9.6-12.0); Monocytes % 6.9 % (1.7-12.7); Neutrophils % 88.2 % (38.7-73.9); Platelet Count 91 T/CUMM (130-400); Red Cell Distribution Width 14.1 % (9.3-17.3); White Blood Count 14.8 T/CUMM (4-12)
[2019-11-04 06:40] LABS: Albumin 3.4 G/DL (3.4-5.0); Bilirubin,Direct 0.37 MG/DL (0.0-0.20); Bilirubin,Total 1.9 MG/DL (0.2-1.0); Calcium 8.8 MG/DL (8.5-10.1); Total Protein 6.1 G/DL (6.4-8.3)
[2019-11-04] MEDS: CHLORHEXIDINE 0.12% ORAL RINSE 60 ML BOTTLE SWISH/SPIT SCH ×2 (08:09→22:50)
[2019-11-04] MEDS: FLUTICASONE/SALMETEROL 250-50 DISKUS 14 DOSE INH SCH ×2 (08:09→22:50)
[2019-11-04 09:03] LABS: Eosinophils 1 % (0-10); Lymphocytes 1 % (20-55); Platelet Estimate Adequate; Polychromasia Slight; Segmented Neutrophils 96 % (50-85); Total Cells Counted 100
[2019-11-04 09:04] LABS: Ovalocytes Few
[2019-11-04] MEDS ORDERED: ONDANSETRON 4 MG/2 ML VIAL IV PRN (09:10)
[2019-11-04] MEDS ORDERED: DEXTROSE 10% 250 ML BAG IV PRN ×2 (09:10)
[2019-11-04] MEDS ORDERED: MAGNESIUM SULF RIDER 4 GM in PREMIX 1 EACH IV PRN (09:10)
[2019-11-04] MEDS ORDERED: MAGNESIUM SULF RIDER 2 GM in PREMIX 1 EACH IV PRN (09:10)
[2019-11-04] MEDS ORDERED: MAGNESIUM HYDROXIDE SUSP 30 ML UDCUP PO PRN (09:10)
[2019-11-04] MEDS ORDERED: oxyCODONE/ACETAMINOPHEN 5-325 MG TABLET PO PRN (09:10)
[2019-11-04] MEDS ORDERED: ALUMINUM/MAGNES/SIMETH MAX STR 30 ML UDCUP PO PRN (09:10)
[2019-11-04] MEDS ORDERED: GLUCAGON 1 MG VIAL IM PRN ×2 (09:10)
[2019-11-04] MEDS ORDERED: ZALEPLON 5 MG CAPSULE PO PRN (09:10)
[2019-11-04] MEDS ORDERED: diphenhydrAMINE CAP 25 MG CAPSULE PO PRN (09:10)
[2019-11-04] MEDS ORDERED: ACETAMINOPHEN 325 MG TABLET PO PRN (09:10)
[2019-11-04] MEDS: CALCIUM (CARBONATE) 600 MG TABLET PO SCH (09:16)
[2019-11-04] MEDS ORDERED: SODIUM CHLOR 0.45% KCL 20 MEQ 20 MEQ/1,000 ML BAG IV SCH (09:30)
[2019-11-04] MEDS: MONTELUKAST 10 MG TABLET PO SCH (09:33)
[2019-11-04] MEDS: SOTALOL 80 MG TABLET PO SCH ×2 (09:33→22:50)
[2019-11-04] MEDS: MULTIVITAMIN (CENTRUM) TABLET PO SCH (09:33)
[2019-11-04] MEDS: LEVOTHYROXINE 100 MCG TABLET PO SCH (09:33)
[2019-11-04] MEDS: WARFARIN 2.5 MG TABLET PO SCH (17:27)
[2019-11-04] MEDS: ROSUVASTATIN 20 MG TABLET PO SCH (22:50)
[2019-11-04] MEDS: FOLIC ACID 0.4 MG TABLET PO SCH (22:50)
[2019-11-05] MEDS: SOTALOL 80 MG TABLET PO SCH ×5 (00:44→21:07)
[2019-11-05] MEDS: INSULIN REGULAR 100 UNIT/ML SUBCUT SCH ×6 (00:45→21:04)
[2019-11-05] MEDS: CYANOCOBALAMIN 500 MCG TABLET PO SCH ×2 (00:45→21:05)
[2019-11-05] MEDS ORDERED: FUROSEMIDE 40 MG/4 ML VIAL IV ONE (06:00)
[2019-11-05 06:55] LABS: Basophils % 0.1 % (0.0-0.8); Hematocrit 33.9 VOL% (35.7-47.0); Hemoglobin 11.5 GM/DL (12.0-16.0); Immature Granulocytes % 0.5 %; Immature Granulocytes Absolute 0.07 #; Lymphocytes # 0.6 10*3/uL (1.4-4.0); Lymphocytes % 4.1 % (21.3-54.2); Mean Corpuscular HGB Conc 33.9 GM/DL (32-36); Mean Corpuscular Volume 92.1 FL (87-102); Mean Platelet Volume 12.4 FL (9.6-12.0); Monocytes % 6.9 % (1.7-12.7); Neutrophils % 88.4 % (38.7-73.9); Platelet Count 139 T/CUMM (130-400); Red Blood Count 3.68 MC/CUMM (3.8-5.5); Red Cell Distribution Width 13.7 % (9.3-17.3); White Blood Count 15.2 T/CUMM (4-12)
[2019-11-05 07:14] LABS: Alanine Aminotransferase 23 U/L (13-56); Albumin 3.5 G/DL (3.4-5.0); Alkaline Phosphatase 64 U/L (45-117); Aspartate Amino Transferase 33 U/L (0-37); Bilirubin,Indirect 1.1 MG/DL (0.0-1.0); Blood Urea Nitrogen 31 MG/DL (7-18); Estimated Glom Filtration Rate 47 ML/MIN; Glucose 128 MG/DL (74-106); Osmolality,Calculated 281.8 MOS/KG (273-304); Total Protein 6.7 G/DL (6.4-8.3)
[2019-11-05] MEDS: FLUTICASONE/SALMETEROL 250-50 DISKUS 14 DOSE INH SCH ×2 (08:49→21:07)
[2019-11-05] MEDS: FERROUS SULFATE 325 MG TABLET PO SCH (08:49)
[2019-11-05] MEDS: LEVOTHYROXINE 100 MCG TABLET PO SCH (08:49)
[2019-11-05] MEDS: PANTOPRAZOLE 40 MG TABLET PO SCH (08:49)
[2019-11-05] MEDS: MULTIVITAMIN (CENTRUM) TABLET PO SCH (08:49)
[2019-11-05] MEDS: DOCUSATE SODIUM 100 MG CAPSULE PO SCH (08:50)
[2019-11-05] MEDS: MONTELUKAST 10 MG TABLET PO SCH (08:50)
[2019-11-05] MEDS: CHLORHEXIDINE 0.12% ORAL RINSE 60 ML BOTTLE SWISH/SPIT SCH ×2 (08:51→21:08)
[2019-11-05] MEDS: Turmeric Root Extract 500 MG PO SCH (08:52)
[2019-11-05] MEDS ORDERED: ASPIRIN EC 325 MG TABLET PO SCH (09:00)
[2019-11-05] MEDS: WARFARIN 2.5 MG TABLET PO SCH (17:25)
[2019-11-05] MEDS: FOLIC ACID 0.4 MG TABLET PO SCH (21:06)
[2019-11-05] MEDS: ROSUVASTATIN 20 MG TABLET PO SCH (21:07)
[2019-11-06 06:37] LABS: PT Patient Result 10.6 SECS (9.6-12.2)
[2019-11-06 06:40] LABS: Basophils % 0.1 % (0.0-0.8); Hematocrit 34.2 VOL% (35.7-47.0); Hemoglobin 11.5 GM/DL (12.0-16.0); Immature Granulocytes % 0.6 %; Immature Granulocytes Absolute 0.07 #; Mean Corpuscular HGB Conc 33.6 GM/DL (32-36); Mean Corpuscular Volume 92.2 FL (87-102); Mean Platelet Volume 11.8 FL (9.6-12.0); Neutrophils % 81.3 % (38.7-73.9); Platelet Count 171 T/CUMM (130-400); Red Blood Count 3.71 MC/CUMM (3.8-5.5); Red Cell Distribution Width 13.7 % (9.3-17.3); White Blood Count 12.5 T/CUMM (4-12)
[2019-11-06 07:07] LABS: Alanine Aminotransferase 25 U/L (13-56); Albumin 3.1 G/DL (3.4-5.0); Alkaline Phosphatase 75 U/L (45-117); Aspartate Amino Transferase 26 U/L (0-37); Blood Urea Nitrogen 37 MG/DL (7-18); Estimated Glom Filtration Rate 64 ML/MIN; Glucose 103 MG/DL (74-106); Osmolality,Calculated 278.1 MOS/KG (273-304); Total Protein 6.2 G/DL (6.4-8.3)
[2019-11-06] MEDS: CHLORHEXIDINE 0.12% ORAL RINSE 60 ML BOTTLE SWISH/SPIT SCH ×2 (08:59→21:19)
[2019-11-06] MEDS: FLUTICASONE/SALMETEROL 250-50 DISKUS 14 DOSE INH SCH ×2 (08:59→21:19)
[2019-11-06] MEDS: PANTOPRAZOLE 40 MG TABLET PO SCH (09:00)
[2019-11-06] MEDS: FERROUS SULFATE 325 MG TABLET PO SCH (09:00)
[2019-11-06] MEDS: SOTALOL 80 MG TABLET PO SCH ×3 (09:00→21:18)
[2019-11-06] MEDS: LEVOTHYROXINE 100 MCG TABLET PO SCH (09:00)
[2019-11-06] MEDS: MULTIVITAMIN (CENTRUM) TABLET PO SCH (09:00)
[2019-11-06] MEDS: MONTELUKAST 10 MG TABLET PO SCH (09:00)
[2019-11-06] MEDS: ASPIRIN EC 81 MG TABLET PO SCH (09:00)
[2019-11-06] MEDS: DOCUSATE SODIUM 100 MG CAPSULE PO SCH (09:00)
[2019-11-06] MEDS: Turmeric Root Extract 500 MG PO SCH (09:02)
[2019-11-06] MEDS: INSULIN REGULAR 100 UNIT/ML SUBCUT SCH ×2 (09:28→11:36)
[2019-11-06] MEDS ORDERED: WARFARIN 5 MG TABLET PO SCH (18:00)
[2019-11-06] MEDS: CYANOCOBALAMIN 500 MCG TABLET PO SCH ×2 (21:17→21:54)
[2019-11-06] MEDS: FOLIC ACID 0.4 MG TABLET PO SCH (21:18)
[2019-11-06] MEDS: ROSUVASTATIN 20 MG TABLET PO SCH (21:18)
[2019-11-07 05:25] LABS: Basophils % 0.2 % (0.0-0.8); Eosinophils # 0.3 10*3/uL (0.0-0.87); Eosinophils % 2.6 % (0.00-10.9); Hematocrit 35.2 VOL% (35.7-47.0); Hemoglobin 11.6 GM/DL (12.0-16.0); Immature Granulocytes % 0.7 %; Immature Granulocytes Absolute 0.07 #; Lymphocytes # 1.8 10*3/uL (1.4-4.0); Lymphocytes % 17.7 % (21.3-54.2); Mean Corpuscular Volume 92.6 FL (87-102); Mean Platelet Volume 11.3 FL (9.6-12.0); Monocytes % 13.8 % (1.7-12.7); Platelet Count 198 T/CUMM (130-400); Red Cell Distribution Width 13.4 % (9.3-17.3); White Blood Count 10.3 T/CUMM (4-12)
[2019-11-07 05:32] LABS: PT Patient Result 10.9 SECS (9.6-12.2)
[2019-11-07 05:48] LABS: Calcium 8.8 MG/DL (8.5-10.1); Osmolality,Calculated 285.4 MOS/KG (273-304)
[2019-11-07] MEDS: FERROUS SULFATE 325 MG TABLET PO SCH (08:24)
[2019-11-07] MEDS: MONTELUKAST 10 MG TABLET PO SCH (08:24)
[2019-11-07] MEDS: ASPIRIN EC 81 MG TABLET PO SCH (08:24)
[2019-11-07] MEDS: PANTOPRAZOLE 40 MG TABLET PO SCH (08:25)
[2019-11-07] MEDS: MULTIVITAMIN (CENTRUM) TABLET PO SCH (08:25)
[2019-11-07] MEDS: LEVOTHYROXINE 100 MCG TABLET PO SCH (08:25)
[2019-11-07] MEDS: POTASSIUM CHLORIDE 20 MEQ TABLET PO PRN ×2 (08:25→09:26)
[2019-11-07] MEDS: SOTALOL 80 MG TABLET PO SCH ×2 (08:25→20:40)
[2019-11-07] MEDS: DOCUSATE SODIUM 100 MG CAPSULE PO SCH (08:26)
[2019-11-07] MEDS: FLUTICASONE/SALMETEROL 250-50 DISKUS 14 DOSE INH SCH ×2 (08:29→20:40)
[2019-11-07] MEDS: Turmeric Root Extract 500 MG PO SCH (08:43)
[2019-11-07] MEDS: CHLORHEXIDINE 0.12% ORAL RINSE 60 ML BOTTLE SWISH/SPIT SCH ×2 (09:30→20:40)
[2019-11-07] MEDS: WARFARIN 2.5 MG TABLET PO SCH (17:22)
[2019-11-07] MEDS: FOLIC ACID 0.4 MG TABLET PO SCH (20:40)
[2019-11-07] MEDS: ROSUVASTATIN 20 MG TABLET PO SCH (20:40)
[2019-11-07] MEDS: CYANOCOBALAMIN 500 MCG TABLET PO SCH (20:41)
[2019-11-08 04:22] LABS: Basophils % 0.4 % (0.0-0.8); Eosinophils # 0.5 10*3/uL (0.0-0.87); Eosinophils % 5.3 % (0.00-10.9); Hematocrit 33.8 VOL% (35.7-47.0); Hemoglobin 11.1 GM/DL (12.0-16.0); Immature Granulocytes % 1.1 %; Immature Granulocytes Absolute 0.11 #; Lymphocytes # 1.7 10*3/uL (1.4-4.0); Lymphocytes % 16.7 % (21.3-54.2); Mean Corpuscular HGB Conc 32.8 GM/DL (32-36); Mean Corpuscular Volume 92.9 FL (87-102); Monocytes % 12.9 % (1.7-12.7); Neutrophils % 63.6 % (38.7-73.9); Platelet Count 173 T/CUMM (130-400); Red Blood Count 3.64 MC/CUMM (3.8-5.5); Red Cell Distribution Width 13.2 % (9.3-17.3); White Blood Count 10.2 T/CUMM (4-12)
[2019-11-08 04:32] LABS: INR 1.2; PT Patient Result 12.5 SECS (9.6-12.2)
[2019-11-08 04:52] LABS: Alanine Aminotransferase 27 U/L (13-56); Albumin 2.9 G/DL (3.4-5.0); Alkaline Phosphatase 74 U/L (45-117); Aspartate Amino Transferase 22 U/L (0-37); Bilirubin,Indirect 1.7 MG/DL (0.0-1.0); Blood Urea Nitrogen 26 MG/DL (7-18); Calcium 8.9 MG/DL (8.5-10.1); Estimated Glom Filtration Rate 58 ML/MIN; Glucose 93 MG/DL (74-106); Osmolality,Calculated 281.5 MOS/KG (273-304); Total Protein 5.9 G/DL (6.4-8.3)
[2019-11-08 04:59] LABS: Troponin I 0.753 NG/ML (0.00-0.045)
[2019-11-08] MEDS ORDERED: PHENOL 1.4% THROAT SPRAY 177 ML BOTTLE PO PRN (07:43)
[2019-11-08] MEDS: SOTALOL 80 MG TABLET PO SCH (08:33)
[2019-11-08] MEDS: LEVOTHYROXINE 100 MCG TABLET PO SCH (08:34)
[2019-11-08] MEDS: DOCUSATE SODIUM 100 MG CAPSULE PO SCH (08:34)
[2019-11-08] MEDS: ASPIRIN EC 81 MG TABLET PO SCH (08:34)
[2019-11-08] MEDS: MONTELUKAST 10 MG TABLET PO SCH (08:34)
[2019-11-08] MEDS: CHLORHEXIDINE 0.12% ORAL RINSE 60 ML BOTTLE SWISH/SPIT SCH (08:34)
[2019-11-08] MEDS: PANTOPRAZOLE 40 MG TABLET PO SCH (08:34)
[2019-11-08] MEDS: POTASSIUM CHLORIDE 20 MEQ TABLET PO PRN (08:34)
[2019-11-08] MEDS: FERROUS SULFATE 325 MG TABLET PO SCH (08:34)
[2019-11-08] MEDS: MULTIVITAMIN (CENTRUM) TABLET PO SCH (08:34)
[2019-11-08] MEDS: FLUTICASONE/SALMETEROL 250-50 DISKUS 14 DOSE INH SCH (08:35)
[2019-11-08] MEDS: Turmeric Root Extract 500 MG PO SCH (08:40)
[2019-11-08 12:15] VITALS: BP 133/66
== END 2019-11-08 14:04 | DRG 220 ==
LOC: N.TELEN 08:42 → N.4E 10:27 → N.CVR 11-02 10:22 → N.ICU 11-03 09:13 → N.TELES 11-04 14:33

== ENCOUNTER 2019-11-11 14:27 | Inpatient (IN) ==
[2019-11-11] MEDS ORDERED: DILTIAZEM 50 MG/10 ML VIAL IV STA (14:47)
[2019-11-11] MEDS ORDERED: SODIUM CHLORIDE 0.9% 500 ML IV STA (15:04)
[2019-11-11 15:16] LABS: Basophils # 0.1 10*3/uL (0.0-0.2); Basophils % 0.6 % (0.0-0.8); Eosinophils # 0.7 10*3/uL (0.0-0.87); Eosinophils % 7.2 % (0.00-10.9); Hematocrit 33.1 VOL% (35.7-47.0); Immature Granulocytes % 0.7 %; Immature Granulocytes Absolute 0.07 #; Lymphocytes # 1.5 10*3/uL (1.4-4.0); Lymphocytes % 15.5 % (21.3-54.2); Mean Corpuscular HGB Conc 33.2 GM/DL (32-36); Mean Corpuscular Volume 91.9 FL (87-102); Mean Platelet Volume 10.3 FL (9.6-12.0); Monocytes % 10.7 % (1.7-12.7); Neutrophils % 65.3 % (38.7-73.9); Platelet Count 252 T/CUMM (130-400); Red Cell Distribution Width 13.2 % (9.3-17.3); White Blood Count 9.8 T/CUMM (4-12)
[2019-11-11] MEDS ORDERED: dilTIAZem Drip 125 MG/125 ML PREMIX IV SCH (15:30)
[2019-11-11 15:34] LABS: INR 1.4; PT Patient Result 14.7 SECS (9.6-12.2); Partial Thromboplastin Time 29.9 SECS (20.8-36.0)
[2019-11-11 15:41] LABS: Bilirubin,Total 1.3 MG/DL (0.2-1.0); Calcium 8.6 MG/DL (8.5-10.1); Thyroid Stimulating Hormone 6.3 uIU/ml (0.358-3.74); Total Protein 6.4 G/DL (6.4-8.3)
[2019-11-11] MEDS ORDERED: SOTALOL 80 MG TABLET PO STA (16:57)
[2019-11-11] MEDS ORDERED: MAGNESIUM SULF RIDER 2 GM in PREMIX 1 EACH IV PRN (17:20)
[2019-11-11] MEDS ORDERED: MAGNESIUM SULF RIDER 4 GM in PREMIX 1 EACH IV PRN (17:20)
[2019-11-11] MEDS ORDERED: GLUCAGON 1 MG VIAL IM PRN (17:30)
[2019-11-11] MEDS: SODIUM CHLORIDE 0.45% 1,000 ML IV SCH (18:23)
[2019-11-11] MEDS ORDERED: guaiFENesin 200 MG/10 ML UDCUP PO PRN (20:27)
[2019-11-11] MEDS ORDERED: diphenhydrAMINE CAP 25 MG CAPSULE PO PRN (20:27)
[2019-11-11] MEDS ORDERED: ALBUTEROL 2.5 MG/3 ML NEB RESP TX PRN (20:27)
[2019-11-11] MEDS ORDERED: BISACODYL 10 MG SUPP RECTAL PRN (20:27)
[2019-11-11] MEDS ORDERED: POTASSIUM CHLORIDE 20 MEQ TABLET PO PRN (20:27)
[2019-11-11] MEDS ORDERED: MAGNESIUM HYDROXIDE SUSP 30 ML UDCUP PO PRN (20:27)
[2019-11-11] MEDS ORDERED: BISACODYL 5 MG TABLET PO PRN (20:27)
[2019-11-11] MEDS ORDERED: NON-FORMULARY MEDICATION (Cyanocobalamin (Vitamin B-12) [Vitamin B-12] 5,000 MCG) SL SCH (21:00)
[2019-11-11] MEDS: WARFARIN 2.5 MG TABLET PO SCH (21:30)
[2019-11-11] MEDS: SOTALOL 80 MG TABLET PO SCH (21:35)
[2019-11-11] MEDS: FOLIC ACID 0.4 MG TABLET PO SCH (23:59)
[2019-11-12] MEDS: LEVOTHYROXINE 100 MCG TABLET PO SCH (06:47)
[2019-11-12 08:14] LABS: Calcium 8.9 MG/DL (8.5-10.1); Osmolality,Calculated 268.2 MOS/KG (273-304)
[2019-11-12] MEDS ORDERED: NON-FORMULARY MEDICATION (Turmeric Root Extract 500 MG) PO SCH (09:00)
[2019-11-12] MEDS: SOTALOL 80 MG TABLET PO SCH ×2 (09:14→21:40)
[2019-11-12] MEDS: MONTELUKAST 10 MG TABLET PO SCH (09:14)
[2019-11-12] MEDS: DOCUSATE SODIUM 100 MG CAPSULE PO SCH (09:14)
[2019-11-12] MEDS: ASPIRIN EC 81 MG TABLET PO SCH (09:15)
[2019-11-12] MEDS: FLUTICASONE/SALMETEROL 250-50 DISKUS 14 DOSE INH SCH ×2 (09:15→21:42)
[2019-11-12] MEDS: CALCIUM (CARBONATE) 600 MG TABLET PO SCH (09:15)
[2019-11-12] MEDS: MULTIVITAMIN (CENTRUM) TABLET PO SCH (09:15)
[2019-11-12] MEDS: PANTOPRAZOLE 40 MG TABLET PO SCH (16:56)
[2019-11-12] MEDS: ACETAMINOPHEN 325 MG TABLET PO PRN (17:55)
[2019-11-12] MEDS: WARFARIN 2.5 MG TABLET PO SCH (21:39)
[2019-11-12] MEDS: MAGNESIUM OXIDE 400 MG TABLET PO SCH (21:39)
[2019-11-12] MEDS: oxyCODONE/ACETAMINOPHEN 5-325 MG TABLET PO PRN (21:40)
[2019-11-12] MEDS: FOLIC ACID 0.4 MG TABLET PO SCH (21:40)
[2019-11-12] MEDS: SODIUM CHLORIDE 0.45% 1,000 ML IV SCH (21:43)
[2019-11-13] MEDS: ROSUVASTATIN 20 MG TABLET PO SCH ×2 (01:38→21:09)
[2019-11-13 05:55] LABS: Calcium 8.8 MG/DL (8.5-10.1); Osmolality,Calculated 267.4 MOS/KG (273-304)
[2019-11-13] MEDS: LEVOTHYROXINE 100 MCG TABLET PO SCH (06:35)
[2019-11-13 08:28] LABS: INR 1.5; PT Patient Result 15.9 SECS (9.6-12.2)
[2019-11-13] MEDS: MULTIVITAMIN (CENTRUM) TABLET PO SCH (09:02)
[2019-11-13] MEDS: SOTALOL 80 MG TABLET PO SCH ×2 (09:02→21:09)
[2019-11-13] MEDS: ASPIRIN EC 81 MG TABLET PO SCH (09:02)
[2019-11-13] MEDS: FLUTICASONE/SALMETEROL 250-50 DISKUS 14 DOSE INH SCH ×2 (09:03→21:10)
[2019-11-13] MEDS: CALCIUM (CARBONATE) 600 MG TABLET PO SCH (09:03)
[2019-11-13] MEDS ORDERED: WARFARIN 5 MG TABLET PO ONE (09:03)
[2019-11-13] MEDS: MONTELUKAST 10 MG TABLET PO SCH (09:03)
[2019-11-13] MEDS: DOCUSATE SODIUM 100 MG CAPSULE PO SCH (09:08)
[2019-11-13] MEDS: SODIUM CHLORIDE 0.45% 1,000 ML IV SCH ×2 (10:25→19:36)
[2019-11-13] MEDS: ASCORBIC ACID 500 MG TABLET PO SCH ×2 (14:45→21:10)
[2019-11-13] MEDS: ACETAMINOPHEN 325 MG TABLET PO PRN (14:46)
[2019-11-13] MEDS ORDERED: WARFARIN 5 MG TABLET PO SCH (17:00)
[2019-11-13] MEDS: PANTOPRAZOLE 40 MG TABLET PO SCH (17:02)
[2019-11-13] MEDS: MAGNESIUM OXIDE 400 MG TABLET PO SCH (21:09)
[2019-11-13] MEDS: FOLIC ACID 0.4 MG TABLET PO SCH (21:09)
[2019-11-13] MEDS: oxyCODONE/ACETAMINOPHEN 5-325 MG TABLET PO PRN (21:11)
[2019-11-14 05:06] LABS: Basophils # 0.1 10*3/uL (0.0-0.2); Basophils % 0.9 % (0.0-0.8); Hematocrit 31.2 VOL% (35.7-47.0); Hemoglobin 10.5 GM/DL (12.0-16.0); Immature Granulocytes % 0.9 %; Immature Granulocytes Absolute 0.12 #; Lymphocytes # 2.6 10*3/uL (1.4-4.0); Lymphocytes % 18.4 % (21.3-54.2); Mean Corpuscular HGB Conc 33.7 GM/DL (32-36); Mean Corpuscular Volume 92.3 FL (87-102); Mean Platelet Volume 10.8 FL (9.6-12.0); Monocytes % 7.7 % (1.7-12.7); Neutrophils % 65.1 % (38.7-73.9); Platelet Count 289 T/CUMM (130-400); Red Blood Count 3.38 MC/CUMM (3.8-5.5); Red Cell Distribution Width 13.3 % (9.3-17.3)
[2019-11-14 05:15] LABS: PT Patient Result 21.5 SECS (9.6-12.2)
[2019-11-14 05:50] LABS: Calcium 8.6 MG/DL (8.5-10.1); Osmolality,Calculated 269.2 MOS/KG (273-304)
[2019-11-14] MEDS: LEVOTHYROXINE 100 MCG TABLET PO SCH (06:25)
[2019-11-14] MEDS: CALCIUM (CARBONATE) 600 MG TABLET PO SCH (08:54)
[2019-11-14] MEDS: MONTELUKAST 10 MG TABLET PO SCH (08:54)
[2019-11-14] MEDS: FLUTICASONE/SALMETEROL 250-50 DISKUS 14 DOSE INH SCH ×2 (08:55→21:23)
[2019-11-14] MEDS: SOTALOL 80 MG TABLET PO SCH ×2 (08:55→21:22)
[2019-11-14] MEDS: MULTIVITAMIN (CENTRUM) TABLET PO SCH (08:55)
[2019-11-14] MEDS: DOCUSATE SODIUM 100 MG CAPSULE PO SCH (08:57)
[2019-11-14] MEDS: ASPIRIN EC 81 MG TABLET PO SCH (08:57)
[2019-11-14] MEDS: ASCORBIC ACID 500 MG TABLET PO SCH ×2 (09:00→21:23)
[2019-11-14] MEDS: SODIUM CHLORIDE 0.45% 1,000 ML IV SCH (15:27)
[2019-11-14] MEDS: PANTOPRAZOLE 40 MG TABLET PO SCH (17:25)
[2019-11-14] MEDS: MAGNESIUM OXIDE 400 MG TABLET PO SCH (21:22)
[2019-11-14] MEDS: ROSUVASTATIN 20 MG TABLET PO SCH (21:22)
[2019-11-14] MEDS: FOLIC ACID 0.4 MG TABLET PO SCH (21:22)
[2019-11-14] MEDS: WARFARIN 2.5 MG TABLET PO SCH (21:27)
[2019-11-15 06:10] LABS: Basophils # 0.1 10*3/uL (0.0-0.2); Eosinophils # 0.7 10*3/uL (0.0-0.87); Eosinophils % 7.4 % (0.00-10.9); Hematocrit 29.6 VOL% (35.7-47.0); Hemoglobin 9.6 GM/DL (12.0-16.0); Immature Granulocytes % 0.6 %; Immature Granulocytes Absolute 0.06 #; Lymphocytes # 1.6 10*3/uL (1.4-4.0); Lymphocytes % 16.1 % (21.3-54.2); Mean Corpuscular HGB Conc 32.4 GM/DL (32-36); Mean Corpuscular Volume 93.4 FL (87-102); Mean Platelet Volume 10.6 FL (9.6-12.0); Monocytes % 9.2 % (1.7-12.7); Neutrophils % 65.7 % (38.7-73.9); Platelet Count 213 T/CUMM (130-400); Red Blood Count 3.17 MC/CUMM (3.8-5.5); Red Cell Distribution Width 13.3 % (9.3-17.3)
[2019-11-15] MEDS: LEVOTHYROXINE 100 MCG TABLET PO SCH (06:13)
[2019-11-15 06:24] LABS: Calcium 9.1 MG/DL (8.5-10.1); Osmolality,Calculated 273.8 MOS/KG (273-304)
[2019-11-15 06:31] LABS: INR 2.5
[2019-11-15 06:34] LABS: PT Patient Result 27.3 SECS (9.6-12.2)
[2019-11-15 08:49] VITALS: BP 128/57
[2019-11-15] MEDS: CALCIUM (CARBONATE) 600 MG TABLET PO SCH (09:03)
[2019-11-15] MEDS: MULTIVITAMIN (CENTRUM) TABLET PO SCH (09:03)
[2019-11-15] MEDS: SOTALOL 80 MG TABLET PO SCH (09:03)
[2019-11-15] MEDS: FLUTICASONE/SALMETEROL 250-50 DISKUS 14 DOSE INH SCH (09:04)
[2019-11-15] MEDS: ASPIRIN EC 81 MG TABLET PO SCH (09:04)
[2019-11-15] MEDS: DOCUSATE SODIUM 100 MG CAPSULE PO SCH (09:04)
[2019-11-15] MEDS: MONTELUKAST 10 MG TABLET PO SCH (09:04)
[2019-11-15] MEDS: ASCORBIC ACID 500 MG TABLET PO SCH (09:04)
[2019-11-15] MEDS: SODIUM CHLORIDE 0.45% 1,000 ML IV SCH (13:05)
== END 2019-11-15 13:55 | disposition swing bed (61) | DRG 309 ==
LOC: N.ED 14:27 → N.EDINP 17:20 → N.CC 18:25 → N.TELES 11-14 13:03
PROVIDERS: ADMIT Internal Medicine Cardiovascular Disease; ATTEND Internal Medicine Cardiovascular Disease

== ENCOUNTER 2021-09-16 11:34 | Inpatient (IN) ==
[2021-09-16 14:37] LABS: Basophils % 0.4 % (0.0-0.8); Eosinophils # 0.1 10*3/uL (0.0-0.87); Eosinophils % 1.1 % (0.00-10.9); Hemoglobin 13.3 GM/DL (12.0-16.0); Lymphocytes # 1.1 10*3/uL (1.4-4.0); Lymphocytes % 10.4 % (21.3-54.2); Mean Corpuscular HGB Conc 34.1 GM/DL (32-36); Mean Corpuscular Volume 91.8 FL (87-102); Mean Platelet Volume 11.5 FL (9.6-12.0); Monocytes % 6.5 % (1.7-12.7); Neutrophils % 81.1 % (38.7-73.9); Platelet Count 185 T/CUMM (130-400); Red Blood Count 4.25 MC/CUMM (3.8-5.5); Red Cell Distribution Width 12.9 % (9.3-17.3); White Blood Count 10.8 T/CUMM (4-12)
[2021-09-16 14:51] LABS: INR 2.2; PT Patient Result 23.4 SECS (10.5-12.0); Partial Thromboplastin Time 38.1 SECS (23.8-32.1)
[2021-09-16 14:57] LABS: Albumin 3.8 G/DL (3.4-5.0); Bilirubin,Total 1.6 MG/DL (0.20-1.00); Calcium 9.4 MG/DL (8.5-10.1); Osmolality,Calculated 272.8 MOS/KG (273-304); Potassium 3.6 MMOL/L (3.5-5.1); Total Protein 7.5 G/DL (6.4-8.2)
[2021-09-16] MEDS ORDERED: ACETAMINOPHEN 325 MG TABLET PO PRN ×2 (18:34→18:41)
[2021-09-16] MEDS ORDERED: ONDANSETRON 4 MG/2 ML VIAL IV PRN ×2 (18:34→18:41)
[2021-09-16] MEDS ORDERED: IBUPROFEN 600 MG TABLET PO PRN (18:41)
[2021-09-16] MEDS ORDERED: FOLIC ACID 400 MCG PO SCH (21:00)
[2021-09-16] MEDS ORDERED: DOCUSATE SODIUM 100 MG CAPSULE PO SCH (21:00)
[2021-09-16] MEDS: SOTALOL 80 MG TABLET PO SCH (21:18)
[2021-09-16] MEDS: MAGNESIUM OXIDE 400 MG TABLET PO SCH (21:18)
[2021-09-16] MEDS: ROSUVASTATIN 20 MG TABLET PO SCH (21:18)
[2021-09-16] MEDS: DOCUSATE SODIUM 100 MG CAPSULE PO SCH (21:18)
[2021-09-16] MEDS: SODIUM CHLORIDE 0.45% 1,000 ML IV SCH (21:19)
[2021-09-17 05:12] LABS: Basophils % 0.5 % (0.0-0.8); Eosinophils # 0.1 10*3/uL (0.0-0.87); Eosinophils % 1.3 % (0.00-10.9); Hematocrit 33.8 VOL% (35.7-47.0); Hemoglobin 11.4 GM/DL (12.0-16.0); Immature Granulocytes % 0.2 %; Immature Granulocytes Absolute 0.02 #; Lymphocytes # 1.4 10*3/uL (1.4-4.0); Lymphocytes % 17.3 % (21.3-54.2); Mean Corpuscular HGB Conc 33.7 GM/DL (32-36); Mean Corpuscular Volume 92.6 FL (87-102); Mean Platelet Volume 11.6 FL (9.6-12.0); Monocytes % 10.6 % (1.7-12.7); Neutrophils % 70.1 % (38.7-73.9); Platelet Count 150 T/CUMM (130-400); Red Blood Count 3.65 MC/CUMM (3.8-5.5); Red Cell Distribution Width 12.9 % (9.3-17.3); White Blood Count 8.2 T/CUMM (4-12)
[2021-09-17] MEDS: LEVOTHYROXINE 100 MCG TABLET PO SCH (06:22)
[2021-09-17] MEDS ORDERED: guaiFENesin 200 MG/10 ML UDCUP PO PRN (08:25)
[2021-09-17] MEDS ORDERED: MAGNESIUM HYDROXIDE SUSP 30 ML UDCUP PO PRN (08:25)
[2021-09-17] MEDS ORDERED: BISACODYL 10 MG SUPP RECTAL PRN (08:25)
[2021-09-17] MEDS ORDERED: diphenhydrAMINE CAP 25 MG CAPSULE PO PRN (08:25)
[2021-09-17] MEDS ORDERED: NON-FORMULARY MEDICATION (Turmeric Root Extract 500 mg Capsule) PO SCH (09:00)
[2021-09-17] MEDS ORDERED: PANTOPRAZOLE 40 MG TABLET PO SCH (09:00)
[2021-09-17 09:03] LABS: INR 2.4; PT Patient Result 24.8 SECS (10.5-12.0)
[2021-09-17] MEDS ORDERED: DEXAMETHASONE 4 MG/1 ML VIAL ONE ×3 (10:45→12:11)
[2021-09-17] MEDS ORDERED: propofoL 200 MG/20 ML VIAL IV ONE (10:45)
[2021-09-17] MEDS ORDERED: LIDOCAINE 2% 5 ML VIAL ONE (10:45)
[2021-09-17] MEDS ORDERED: SEVOFLURANE 1 UNIT/15 MINUTE INH ONE ×5 (10:45→13:21)
[2021-09-17] MEDS ORDERED: ONDANSETRON 4 MG/2 ML VIAL ONE (10:45)
[2021-09-17] MEDS ORDERED: DEXMEDETOMIDINE 200 MCG/2 ML VIAL ONE (10:46)
[2021-09-17] MEDS ORDERED: fentaNYL 100 MCG/2 ML VIAL ONE (10:46)
[2021-09-17] MEDS ORDERED: ROPIVACAINE 0.5% 30 ML VIAL ONE (10:52)
[2021-09-17] MEDS ORDERED: LIDOCAINE 1% 5 ML VIAL ONE (10:52)
[2021-09-17] MEDS ORDERED: ceFAZolin 2,000 MG/50 ML DUPLEX IV ONE (11:00)
[2021-09-17] MEDS ORDERED: ROCURONIUM 50 MG/5 ML VIAL IV ONE (11:50)
[2021-09-17] MEDS ORDERED: ePHEDrine 50 MG/ML VIAL ONE (12:13)
[2021-09-17] MEDS ORDERED: ceFAZolin 1,000 MG VIAL ONE (12:16)
[2021-09-17] MEDS ORDERED: NEOSTIGMINE 10 MG/10 ML VIAL ONE (13:01)
[2021-09-17] MEDS ORDERED: LACTULOSE 20 GM/30 ML UDCUP PO PRN (13:18)
[2021-09-17] MEDS ORDERED: MORPHINE 2 MG/1 ML SYRINGE IV PRN ×2 (13:20→13:40)
[2021-09-17] MEDS: PANTOPRAZOLE 40 MG TABLET PO SCH (14:55)
[2021-09-17] MEDS: DOCUSATE SODIUM 100 MG CAPSULE PO SCH ×2 (14:55→21:53)
[2021-09-17] MEDS: SOTALOL 80 MG TABLET PO SCH ×2 (14:55→21:52)
[2021-09-17] MEDS: LACTATED RINGERS 1,000 ML IV SCH (15:17)
[2021-09-17] MEDS: MAGNESIUM OXIDE 400 MG TABLET PO SCH (21:52)
[2021-09-17] MEDS: ROSUVASTATIN 20 MG TABLET PO SCH (21:53)
[2021-09-17] MEDS: FOLIC ACID 1 MG TABLET PO SCH (21:53)
[2021-09-17] MEDS: CYANOCOBALAMIN 500 MCG TABLET PO SCH (21:53)
[2021-09-17] MEDS: ASCORBIC ACID 500 MG TABLET PO SCH (21:53)
[2021-09-17] MEDS: FLUTICASONE/SALMETEROL 250-50 DISKUS 14 DOSE INH SCH (21:55)
[2021-09-18] MEDS: LEVOTHYROXINE 100 MCG TABLET PO SCH (05:42)
[2021-09-18 05:59] LABS: INR 4.1; PT Patient Result 40.9 SECS (10.5-12.0)
[2021-09-18] MEDS: FLUTICASONE/SALMETEROL 250-50 DISKUS 14 DOSE INH SCH ×2 (08:51→20:37)
[2021-09-18] MEDS: DOCUSATE SODIUM 100 MG CAPSULE PO SCH ×2 (08:51→20:38)
[2021-09-18] MEDS: PANTOPRAZOLE 40 MG TABLET PO SCH (08:51)
[2021-09-18] MEDS: CALCIUM (CARBONATE) 500 MG TABLET PO SCH (08:51)
[2021-09-18] MEDS: ASCORBIC ACID 500 MG TABLET PO SCH ×2 (08:51→20:38)
[2021-09-18] MEDS: MONTELUKAST 10 MG TABLET PO SCH (08:51)
[2021-09-18] MEDS: SOTALOL 80 MG TABLET PO SCH ×2 (08:51→20:38)
[2021-09-18] MEDS: MULTIVITAMIN (CENTRUM) TABLET PO SCH (08:51)
[2021-09-18] MEDS ORDERED: DOCUSATE SODIUM 100 MG CAPSULE PO SCH (09:00)
[2021-09-18] MEDS: LACTATED RINGERS 1,000 ML IV SCH (14:37)
[2021-09-18] MEDS: SODIUM CHLORIDE 0.45% 1,000 ML IV SCH (14:38)
[2021-09-18] MEDS: WARFARIN 5 MG TABLET PO SCH (19:27)
[2021-09-18] MEDS: MAGNESIUM OXIDE 400 MG TABLET PO SCH (20:38)
[2021-09-18] MEDS: ROSUVASTATIN 20 MG TABLET PO SCH (20:38)
[2021-09-18] MEDS: FOLIC ACID 1 MG TABLET PO SCH (20:38)
[2021-09-18] MEDS: CYANOCOBALAMIN 500 MCG TABLET PO SCH (20:38)
[2021-09-19 05:12] LABS: Basophils % 0.2 % (0.0-0.8); Eosinophils # 0.1 10*3/uL (0.0-0.87); Eosinophils % 0.5 % (0.00-10.9); Hematocrit 28.6 VOL% (35.7-47.0); Hemoglobin 9.8 GM/DL (12.0-16.0); Immature Granulocytes % 0.4 %; Immature Granulocytes Absolute 0.05 #; Lymphocytes # 1.4 10*3/uL (1.4-4.0); Lymphocytes % 11.3 % (21.3-54.2); Mean Corpuscular HGB Conc 34.3 GM/DL (32-36); Mean Corpuscular Volume 90.5 FL (87-102); Mean Platelet Volume 11.2 FL (9.6-12.0); Monocytes % 12.3 % (1.7-12.7); Neutrophils % 75.3 % (38.7-73.9); Platelet Count 168 T/CUMM (130-400); Red Blood Count 3.16 MC/CUMM (3.8-5.5); Red Cell Distribution Width 12.9 % (9.3-17.3); White Blood Count 12.4 T/CUMM (4-12)
[2021-09-19 05:18] LABS: INR 2.1; PT Patient Result 22.4 SECS (10.5-12.0)
[2021-09-19 05:33] LABS: Calcium 8.3 MG/DL (8.5-10.1); Osmolality,Calculated 271.1 MOS/KG (273-304); Potassium 3.9 MMOL/L (3.5-5.1)
[2021-09-19] MEDS: LEVOTHYROXINE 100 MCG TABLET PO SCH (06:49)
[2021-09-19] MEDS: LACTATED RINGERS 1,000 ML IV SCH (07:40)
[2021-09-19] MEDS: FLUTICASONE/SALMETEROL 250-50 DISKUS 14 DOSE INH SCH (09:01)
[2021-09-19] MEDS: MULTIVITAMIN (CENTRUM) TABLET PO SCH (09:02)
[2021-09-19] MEDS: PANTOPRAZOLE 40 MG TABLET PO SCH (09:02)
[2021-09-19] MEDS: CALCIUM (CARBONATE) 500 MG TABLET PO SCH (09:02)
[2021-09-19] MEDS: MONTELUKAST 10 MG TABLET PO SCH (09:02)
[2021-09-19] MEDS: DOCUSATE SODIUM 100 MG CAPSULE PO SCH (09:02)
[2021-09-19] MEDS: SOTALOL 80 MG TABLET PO SCH (09:02)
[2021-09-19] MEDS: ASCORBIC ACID 500 MG TABLET PO SCH (09:02)
[2021-09-19] MEDS: WARFARIN 5 MG TABLET PO SCH (18:43)
[2021-09-19 19:32] VITALS: BP 134/66
[2021-09-20] MEDS ORDERED: WARFARIN 2.5 MG TABLET PO SCH (18:00)
== END 2021-09-19 19:32 | DRG 488 ==
LOC: EDUNIT# → EDBD → N.ED 11:34 → N.SDSINP 11:34 → N.3E 17:34
PROVIDERS: ADMIT Family Medicine; ATTEND Family Medicine

== ENCOUNTER 2021-12-14 12:18 | Observation (INO) ==
[2021-12-14] MEDS ORDERED: ASPIRIN 325 MG TABLET PO STA (12:46)
[2021-12-14] MEDS ORDERED: DILTIAZEM 50 MG/10 ML VIAL IV STA ×2 (12:46→14:14)
[2021-12-14 13:17] LABS: Basophils # 0.1 10*3/uL (0.0-0.2); Eosinophils # 0.2 10*3/uL (0.0-0.87); Hematocrit 37.5 VOL% (35.7-47.0); Hemoglobin 12.5 GM/DL (12.0-16.0); Immature Granulocytes % 0.2 %; Immature Granulocytes Absolute 0.01 #; Lymphocytes # 1.2 10*3/uL (1.4-4.0); Lymphocytes % 19.6 % (21.3-54.2); Mean Corpuscular HGB Conc 33.3 GM/DL (32-36); Mean Corpuscular Volume 91.9 FL (87-102); Mean Platelet Volume 11.3 FL (9.6-12.0); Monocytes % 9.2 % (1.7-12.7); Platelet Count 154 T/CUMM (130-400); Red Blood Count 4.08 MC/CUMM (3.8-5.5); Red Cell Distribution Width 13.4 % (9.3-17.3)
[2021-12-14 13:27] LABS: INR 2.1; PT Patient Result 22.5 SECS (10.5-12.0)
[2021-12-14 14:01] LABS: Albumin 3.6 G/DL (3.4-5.0); Bilirubin,Total 0.9 MG/DL (0.20-1.00); Calcium 9.5 MG/DL (8.5-10.1); Osmolality,Calculated 278.4 MOS/KG (273-304); Potassium 4.1 MMOL/L (3.5-5.1); Total Protein 6.9 G/DL (6.4-8.2)
[2021-12-14] MEDS ORDERED: FUROSEMIDE 40 MG/4 ML VIAL IV STA (14:14)
[2021-12-14] MEDS ORDERED: ONDANSETRON 4 MG/2 ML VIAL IV PRN (14:15)
[2021-12-14] MEDS ORDERED: ACETAMINOPHEN 325 MG TABLET PO PRN (14:15)
[2021-12-14] MEDS: DOCUSATE SODIUM 100 MG CAPSULE PO SCH (21:05)
[2021-12-15 06:58] LABS: Basophils # 0.1 10*3/uL (0.0-0.2); Basophils % 0.8 % (0.0-0.8); Eosinophils # 0.2 10*3/uL (0.0-0.87); Eosinophils % 3.4 % (0.00-10.9); Hemoglobin 13.8 GM/DL (12.0-16.0); Immature Granulocytes % 0.6 %; Immature Granulocytes Absolute 0.04 #; Lymphocytes # 1.6 10*3/uL (1.4-4.0); Lymphocytes % 21.8 % (21.3-54.2); Mean Corpuscular HGB Conc 33.7 GM/DL (32-36); Mean Corpuscular Volume 91.7 FL (87-102); Mean Platelet Volume 11.9 FL (9.6-12.0); Monocytes % 9.9 % (1.7-12.7); Neutrophils % 63.5 % (38.7-73.9); Platelet Count 179 T/CUMM (130-400); Red Blood Count 4.47 MC/CUMM (3.8-5.5); Red Cell Distribution Width 13.5 % (9.3-17.3); White Blood Count 7.2 T/CUMM (4-12)
[2021-12-15 07:06] LABS: INR 1.9; PT Patient Result 20.5 SECS (10.5-12.0)
[2021-12-15 07:25] LABS: Albumin 3.5 G/DL (3.4-5.0); Calcium 9.6 MG/DL (8.5-10.1); Osmolality,Calculated 281.5 MOS/KG (273-304); Potassium 3.4 MMOL/L (3.5-5.1); Total Protein 7.3 G/DL (6.4-8.2)
[2021-12-15] MEDS ORDERED: POTASSIUM CHLORIDE 20 MEQ TABLET PO ONE (07:37)
[2021-12-15] MEDS ORDERED: WARFARIN 5 MG TABLET PO ONE (07:56)
[2021-12-15] MEDS ORDERED: ENOXAPARIN 60 MG/0.6 ML SYRINGE SUBCUT ONE (08:00)
[2021-12-15] MEDS ORDERED: WARFARIN 5 MG TABLET PO SCH ×2 (08:00→18:00)
[2021-12-15 08:10] LABS: Free T4 (Free Thyroxine) 1.39 NG/DL (0.76-1.46)
[2021-12-15] MEDS: SOTALOL 80 MG TABLET PO SCH ×2 (08:31→21:09)
[2021-12-15] MEDS: CALCIUM (CARBONATE) 500 MG TABLET PO SCH (08:32)
[2021-12-15] MEDS: LEVOTHYROXINE 100 MCG TABLET PO SCH (08:32)
[2021-12-15] MEDS: LOSARTAN 25 MG TABLET PO SCH ×3 (08:32→21:08)
[2021-12-15] MEDS: PANTOPRAZOLE 40 MG TABLET PO SCH (08:33)
[2021-12-15] MEDS: MONTELUKAST 10 MG TABLET PO SCH (08:33)
[2021-12-15] MEDS: DOCUSATE SODIUM 100 MG CAPSULE PO SCH ×2 (08:33→21:07)
[2021-12-15] MEDS: MULTIVITAMIN (CENTRUM) TABLET PO SCH (08:33)
[2021-12-15] MEDS ORDERED: NON-FORMULARY MEDICATION (Turmeric Root Extract 500 mg Capsule) PO SCH (09:00)
[2021-12-15] MEDS: FLUTICASONE/SALMETEROL 250-50 DISKUS 14 DOSE INH SCH ×2 (09:11→21:08)
[2021-12-15] MEDS ORDERED: ROSUVASTATIN 20 MG TABLET PO SCH (21:00)
[2021-12-15] MEDS ORDERED: MAGNESIUM OXIDE 400 MG TABLET PO SCH (21:00)
[2021-12-15] MEDS ORDERED: FOLIC ACID 1 MG TABLET PO SCH (21:00)
[2021-12-16 04:46] LABS: Basophils # 0.1 10*3/uL (0.0-0.2); Basophils % 1.3 % (0.0-0.8); Eosinophils # 0.3 10*3/uL (0.0-0.87); Eosinophils % 3.8 % (0.00-10.9); Hematocrit 37.8 VOL% (35.7-47.0); Hemoglobin 12.6 GM/DL (12.0-16.0); Immature Granulocytes % 0.3 %; Immature Granulocytes Absolute 0.02 #; Lymphocytes # 2.3 10*3/uL (1.4-4.0); Lymphocytes % 31.9 % (21.3-54.2); Mean Corpuscular HGB Conc 33.3 GM/DL (32-36); Mean Platelet Volume 11.4 FL (9.6-12.0); Monocytes % 11.5 % (1.7-12.7); Neutrophils % 51.2 % (38.7-73.9); Platelet Count 167 T/CUMM (130-400); Red Blood Count 4.11 MC/CUMM (3.8-5.5); Red Cell Distribution Width 13.7 % (9.3-17.3); White Blood Count 7.2 T/CUMM (4-12)
[2021-12-16 05:07] LABS: Calcium 9.2 MG/DL (8.5-10.1); Osmolality,Calculated 286.7 MOS/KG (273-304); Potassium 4.5 MMOL/L (3.5-5.1)
[2021-12-16 05:09] LABS: INR 1.8
[2021-12-16] MEDS: LEVOTHYROXINE 100 MCG TABLET PO SCH (06:15)
[2021-12-16] MEDS ORDERED: MEPERIDINE 25 MG/1 ML VIAL ONE (06:47)
[2021-12-16] MEDS ORDERED: MIDAZOLAM 10 MG/2 ML VIAL ONE (06:47)
[2021-12-16] MEDS ORDERED: SODIUM CHLORIDE 0.9% 1,000 ML IV SCH (07:00)
[2021-12-16] MEDS ORDERED: WARFARIN 2.5 MG TABLET PO SCH (09:00)
[2021-12-16 09:23] VITALS: BP 108/41
[2021-12-16] MEDS: PANTOPRAZOLE 40 MG TABLET PO SCH (09:49)
[2021-12-16] MEDS: MULTIVITAMIN (CENTRUM) TABLET PO SCH (09:49)
[2021-12-16] MEDS: SOTALOL 80 MG TABLET PO SCH (09:49)
[2021-12-16] MEDS: LOSARTAN 25 MG TABLET PO SCH (09:49)
[2021-12-16] MEDS: FLUTICASONE/SALMETEROL 250-50 DISKUS 14 DOSE INH SCH (09:49)
[2021-12-16] MEDS: DOCUSATE SODIUM 100 MG CAPSULE PO SCH (09:49)
[2021-12-16] MEDS: CALCIUM (CARBONATE) 500 MG TABLET PO SCH (09:49)
[2021-12-16] MEDS: MONTELUKAST 10 MG TABLET PO SCH (09:50)
== END 2021-12-16 10:20 | disposition home or self-care (01) ==
LOC: N.ED 12:18 → N.EDINP 12:18 → N.TELES 15:40
PROVIDERS: ADMIT Family Medicine; ATTEND Family Medicine